=== PATIENT | male | born 1950 | race Caucasian/White ===

== ENCOUNTER → 2020-08-25 16:54 | Outpatient (CLI) | payer MEDICARE, OTHER, SELFPAY ==
[2020-08-25 17:58] LABS: Uric Acid 7.3 mg/dL (3.5-8.5)
== END ==
PROVIDERS: PCP Orthopaedic Surgery Foot and Ankle Surgery; Referring Provider Orthopaedic Surgery Foot and Ankle Surgery; Visit Provider Orthopaedic Surgery Foot and Ankle Surgery
DX: M25.471 Effusion, right ankle (principal); M25.571 Pain in right ankle and joints of right foot; M25.572 Pain in left ankle and joints of left foot
CPT/HCPCS: 36415; 84550